=== PATIENT | male | born 1965 | race Caucasian/White ===

== ENCOUNTER → 2016-12-15 | Outpatient (CLI) | payer OTHER ==
--- NOTE | 2016-12-15 15:10 | RADIOLOGY REPORT PS360 ---
ANKLE-LT-3 VIEWS HISTORY: LEFT ANKLE PAINfell 2 feet landed on foot one day ago pain and swelling top of foot Patient Age: 51 years: Male Ordering Physician: Mckinley Alcantar MD TECHNIQUE: 3 views left ankle COMPARISON :None available FINDINGS On the frontal projection there is focal soft tissue swelling seen at the lateral aspect of the foot inferior to the tip of the lateral malleolus. Irregular up to 9 mm osseous fragment here-suspect reflect small fracture fragment arising from the lateral margin of cuboid? Difficult to tell on plain film. On lateral view there is also what appears to be an subtle acute fracture line at the inferior tip of the cuboid also noted a 2 concern regarding fracture of cuboid. There is also soft tissue swelling seen along the dorsal aspect of the foot. Most evident overlying the cuneiform bone and its junction with the navicular. Note slight mount like appearance along the dorsal margin of cuneiforms current lateral view. No convincing fracture on plain film but I would benefit from further evaluation with MR or CT. The navicular dorsal contour appears satisfactory cannot exclude some slight variation in its articulation with the cuneiform lateral view. Plain films of the foot may be more beneficial to evaluate the navicular. The ankle joint itself appears intact. The dome of the talus is intact. Slightly long appearance to the lateral malleolus/distal fibula may reflect some old injury with minor hypertrophy here questionably. Medial malleolus and posterior malleolus intact Generous spurring at the insertion of Achilles tendon along with a moderate plantar calcaneal spur noted IMPRESSION On AP view, what appears to be an acute osseous fracture fragment at lateral aspect midfoot. Origin is unclear on these plain films but suspect this arises from the lateral margin of the cuboid. Focal soft tissue swelling most evident laterally overlying this area. Lateral image shows subtle nondisplaced small fracture along inferior margin of cuboid. There is also notable soft tissue swelling at the dorsal aspect of the foot. No definitive fracture identified here-only questionable mild contour irregularity at dorsal margin cuneiform Recommend MR or CT to further evaluate.
== END ==
LOC: RAD 13:46
DX: M25.572 Pain in left ankle and joints of left foot (principal)

== ENCOUNTER → 2017-01-17 | Outpatient (CLI) | payer OTHER ==
--- NOTE | 2017-01-18 20:47 | RADIOLOGY REPORT PS360 ---
CT EXT.LOWER-LT-W/O CONTRAST Additional 3-D volume rendering reconstructions HISTORY: LT CUBOID FX, PAIN Patient Age: 51 years: Male Ordering Physician: SANTANA PAYAN DPM TECHNIQUE: Helical CT scanning performed through the ankle with multiplanar reconstructions on CT workstation In addition to standard axial coronal and sagittal reformats additionall 3-D volume rendering reconstructions on CT workstation along with additional oblique slab reconstructions by Dr. Henriquez on radiologist workstation COMPARISON left ankle from December 15, 2016 :Plain films of left foot 01/10/2017 MRI 12/21/[address] study nicely demonstrates the fracture fragment arising from the anterior lateral corner of the calcaneus, at its Junction with cuboid. This fragmented fracture fragment measures up to nearly 14 mm maximum length x8 mm x 12 mm somewhat stippled appearance osseous fragment here at the lateral aspect of foot overlying the calcaneal cuboid articulation. There is associated prominent swelling and edema overlying surround this fragment... With a defect can be seen here at the lateral corner of the cuboid particularly on the coronal reprocess images. . Subtalar joint appears intact otherwise. Metatarsals unremarkable.. A minimal dorsal talar beaking/spurring is seen at the dorsal distal talus. Minor degenerative feature. IMPRESSION: This CT study nicely demonstrates the generous fracture fragment arising from the lateral distal corner of talus at its junction with cuboid. Persistent focal edema and swelling here.
== END ==
LOC: RAD 15:13
DX: S92.215A Nondisplaced fracture of cuboid bone of left foot, initial encounter for closed fracture (principal); M79.672 Pain in left foot

== ENCOUNTER 2017-01-26 07:20 | Day surgery (SDC) | payer OTHER ==
[~2017-01-26] VITALS: Ht 172.7 cm; Wt 104.3 kg
--- NOTE | 2017-01-26 10:47 | Anesthesia Record ---
Anesthesia Record Part I Total IV fluids: 450 EBL (ml): 10 Urine Output: 0 B/P: 116/67 % SaO2: 95 Pulse: 67 Resps: 16 Temp: 98.5 Patient is: Awake, Stable Stable to PACU at: 1045 at 1047
--- NOTE | 2017-01-26 10:48 | Operative Note-Podiatry ---
Procedure/Operative Record Procedure DATE OF PROCEDURE 01/26/17 PREOPERATIVE DIAGNOSIS LEFT calcaneal avulsion fracture LEFT cuboid avulsion fracture POSTOPERATIVE DIAGNOSIS Same as Preop Dx PROCEDURE PERFORMED Excision of LEFT calcaneus fracture fragment Excision of LEFT cuboid fracture fragment SURGEON Benita LEHMAN,[place] ANESTHESIA General 30 cc 0.5% marcaine plain EBL (ml) 20 OPERATIVE NOTE/DISCHARGE/PLAN Indication for procedure: Mr. Benson is a 51-year-old male who presents with an avulsion fracture of the LEFT calcaneus and cuboid. X-rays were taken and revealed a small fracture fragment. Patient was made nonweightbearing in a fracture boot and crutches. He continued to have pain to the lateral aspect of the foot and serial x-rays show no improvement in healing. Advanced imaging was obtained. CT scan showed over centimeter fracture fragment avulsed from the dorsal and distal aspect of the calcaneus at the level of the CCJ. There was also a small avulsion fracture off the dorsal proximal cuboid. The patient has been compliant with nonweightbearing but the fragment is just too gapped for bone healing to occur. We discussed surgery. All risks and benefits were discussed including but not limited to: post traumatic osteoarthritis, re-fracture, damage to blood vessels and nerves, bleeding, infection, wound complications, need for further surgery, prolonged swelling of the extremity, prolonged pain, RSD/CRPS, DVT, and anesthetic complications. No guarantees were given. All questions fully answered. The patient verbalized understanding and agreed to proceed with surgery. Consent was obtained. On this date and time the patient was deemed an appropriate surgical candidate. Withe informed consent signed the patient was wheeled from the preoperative holding area to the operating theater and placed on the table in normal supine position. General anesthesia was induced. Tourniquet was applied to the LEFT mid-calf at 225mmHg x 45 mins. The left lower extremity was prepped and draped in the normal sterile fashion. LEFT Excision of Calcaneus, Cuboid Fracture Fragments: Attention was directed to the left lateral foot. A linear incision was mapped out over the calcaneocuboid joint. Dissection was carried thru skin and sub q tissue, with care to maintain surgical hemostasis. The nerve was visible and safely retracted superiorly throughout the procedure. A palpable movable fracture fragment could be felt at the level of the CCJ. Next, dissection was then carried down further through the deep fascia. The EDB muscle was retracted superiorly off the bone. The most distal aspect was teased off the distal aspect of the calcaneus. The calcaneocuboid joint was identified and the fracture fragment was visible. Using a mixture of sharp and blunt dissection technique the calcaneal fracture fragment was excised. The calcaneal fracture fragment was over 1.2 cm long. The wound was palpated and another small piece of bone could be felt at the level of the cuboid dorsally. It was also excised. Bone was sent to pathology as a specimen. The calcaneocuboid joint was evaluated. At the most lateral superior aspect of the calcaneus about 10 percent of the joint was noted to be scuffed. The wound was reexplored and flushed with copious amounts of saline. The tourniquet was deflated at 45 minutes. There was immediate hyperemic response noted to the digits after the tourniquet was deflated. There was no bleeding vessels noted. The wound was once again flushed with copious amounts of normal sterile saline. 3-0 Vicryl was used to reapproximate deep tissue. Acti-shield amniotic graft was then inserted at the level of CC joint as well as over the EDB and wrapped around the communicating branch of the nerve. 4 -0 Monocryl was used to reapproximate sub q tissue. The remaining portion of the Acti-shield graft was inserted underneath the skin overlying the nerve. 4-0 Monocryl was used to close skin in a running subcuticular suture fashion. Viaflow was then injected into the incision followed by 0.5% Marcaine plain in a regional ankle block. The wounds were cleansed. 1/4" steri-strips and masitol was applied to the left incision. Xeroform, dry sterile dressing was then applied. The patient was awoken from anesthesia and transferred to recovery with vital signs stable and neurovascular status intact. Specimens: Left calcaneus fracture fragment Materials: [facility] Acti-shield graft Viaflow Discharge/Plan: D/C home today when ready and vital signs stable. Patient is to maintain dressing clean dry and intact. Ice behind the knee, top of foot and elevate on two pillows. Non weight bearing to the left lower extremity in tall fracture boot and crutches, rolling knee scooter. Rx for [place] 7.5, Zofran, Motrin. Obtain post op films, left foot, 3 views. Follow up with in 1 week. at [id number]
--- NOTE | 2017-01-26 10:48 | Anesthesia Record ---
Anesthesia Record Part II Discharge time: 1115 Destination: Same day surgery PACU nurse assessment review? Yes Patient is: Stable Anesthesia complications? No at 0387
--- NOTE | 2017-01-26 11:49 | RADIOLOGY REPORT PS360 ---
FOOT-LT-2 VIEWS HISTORY: FOREIGN BODY FX REMOVAL ORDERING PHYSICIAN: SANTANA PAYAN DPM PATIENT AGE: 51 years COMPARISON: None FINDINGS: 3 reference views are obtained with the C-arm for preoperative planning. Fluoroscopy time 30 seconds. IMPRESSION: As above
--- NOTE | 2017-01-26 11:50 | RADIOLOGY REPORT PS360 ---
FOOT-LT-3 VIEWS HISTORY: S/P BONE FRAGMENT REMOVAL LEFT FOOT ORDERING PHYSICIAN: SANTANA PAYAN DPM PATIENT AGE: 51 years COMPARISON: 01/10/2017 FINDINGS: 3 portable views are obtained post surgical. The previously noted calcification at the calcaneal cuboid junction laterally is no longer apparent consistent with removal of bone fragment. Osseous cuboid is once again noted. Small area of calcification once again noted over the anterior distal talus. IMPRESSION: Interval bone fragment removal at the calcaneal cuboid junction laterally
[2017-01-26 19:28] VITALS: BP 133/80
[2017-02-01] MEDS ORDERED: IBU800 MG (14:35)
[2017-02-01] MEDS ORDERED: NORCO1 TAB (14:35)
== END 2017-01-26 11:50 | disposition home or self-care (01) ==
LOC: SDC 07:20
PROVIDERS: Podiatrist
PROC: 0QBM0ZZ Excision of Left Tarsal, Open Approach (ICD-10-PCS; principal; 2017-01-26 08:45)
DX: S92.002A Unspecified fracture of left calcaneus, initial encounter for closed fracture (principal); S92.212A Displaced fracture of cuboid bone of left foot, initial encounter for closed fracture; Z85.71 Personal history of Hodgkin lymphoma; W17.89XA Other fall from one level to another, initial encounter; Y93.89 Activity, other specified; Y92.214 College as the place of occurrence of the external cause; Y99.0 Civilian activity done for income or pay
CPT/HCPCS: C1762; C9399; J0131

== ENCOUNTER 2017-02-26 11:08 | Day surgery (SDC) | payer OTHER ==
[~2017-02-26 11:08] MED LIST: IBU800 MG; MOBIC7.5 MG PO; NORCO1 TAB
--- NOTE | 2017-02-26 13:11 | Operative Note ---
Colonoscopy ([facility]) Procedure date: 02/26/17 Date of : 65 Procedure:Colonoscopy Colonoscopy with cold snare polypectomy Indications: Mr. Benson is a 52-year-old gentleman who is here for initial screening colonoscopy. He reports no abdominal pain, weight loss, change in his bowel habits or rectal bleeding. He reports no family history of colon cancer. Performing Provider: Fabby Mireles MD Referrring Provider: Mckinley Alcantar M.D. Sedation: Fentanyl 200 mg IV/Versed 6 mg IV Procedure: Prior to the procedure, a history and physical exam was performed, and patient medications and allergies were reviewed. The risks and benefits of the procedure and the sedation options and risks were discussed with the patient. All questions were answered and informed consent was obtained. Patient identification and proposed procedure were verified by the physician and the nurse. The patient was placed in a left lateral decubitus position. Throughout the procedure, the patient's blood pressure, pulse, and oxygen saturations were monitored continuously. Findings: On digital rectal examination there was normal rectal tone. There were no external hemorrhoids. The prostate was 2+, smooth, symmetric, mildly firm at the base but no nodules. The colonoscope was introduced through the anal canal to the rectum and advanced to the cecum. The ileocecal valve and appendiceal orifice were identified. The scope was advanced a short distance into the ileum which appeared grossly normal. The scope was then withdrawn into the colon. There were 2 diminutive colon polyps identified in the ascending 2. These ranged in size from 4-5 mm and were all removed via cold snare polypectomy. There were scattered diverticuli throughout the descending and sigmoid colon ( LEFT colon). The rectum itself was normal. Upon retroflexion within the rectum there were grade 1 internal hemorrhoids. Impressions: 1. Diminutive colonic polyps 2 2. Left-sided diverticulosis 3. Grade 1 internal hemorrhoids Recommendations: I will follow up the polyp pathology and recommend repeat colonoscopy again in 5 years based upon the polyp histology. I would encourage fiber supplementation on a long-term daily maintenance basis. Complications: None EBL (ml): 0 at 1311
[2017-02-26 15:33] VITALS: BP 137/103
== END 2017-02-26 14:22 | disposition home or self-care (01) ==
LOC: SDC 11:08
PROVIDERS: Internal Medicine Gastroenterology
PROC: 0DBK8ZX Excision of Ascending Colon, Via Natural or Artificial Opening Endoscopic, Diagnostic (ICD-10-PCS; principal; 2017-02-26 13:00)
DX: Z12.11 Encounter for screening for malignant neoplasm of colon (principal); D12.2 Benign neoplasm of ascending colon; K57.30 Diverticulosis of large intestine without perforation or abscess without bleeding; K64.0 First degree hemorrhoids